=== PATIENT | female | born 1995 | race Two or more races ===

== ENCOUNTER 2019-09-22 17:41 | Emergency (ER) | payer SELFPAY ==
[~2019-09-22] VITALS: Ht 154.9 cm; Wt 61.2 kg
--- NOTE | 2019-09-22 17:59 | PHYS DOC ---
Past Medical History Attending Signature I have participated in the care of this patient and I have reviewed and agree with all pertinent clinical information above including history, exam, and recommendations. (ELIDA MUNOZ MD) Adult General Chief Complaint Chief Complaint: COUGH HPI HPI Patient is a 24 year old female who presents with shortness breath, cough this been ongoing for 4 days. Patient has a history of asthma. Patient rates her pain 7 out of 10 in severity and sharp. (JUSTIN BENDER APRN) Review of Systems Review of Systems Constitutional: Denies fever or chills [] Eyes: Denies change in visual acuity, redness, or eye pain [] HENT: Denies nasal congestion or sore throat [] Respiratory: Reports cough and shortness of breath [] Cardiovascular: No additional information not addressed in HPI [] GI: Denies abdominal pain, nausea, vomiting, bloody stools or diarrhea [] : Denies dysuria or hematuria [] Musculoskeletal: Denies back pain or joint pain [] Integument: Denies rash or skin lesions [] Neurologic: Denies headache, focal weakness or sensory changes [] Endocrine: Denies polyuria or polydipsia [] Complete systems were reviewed and found to be within normal limits, except as documented in this note. (JUSTIN BENDER APRN) Current Medications Current Medications Current Medications Medications (Trade) Dose Ordered Sig/Ju Start Time Stop Time Status Last Admin Dose Admin Albuterol/ Ipratropium (Duoneb) 3 ml 1X ONCE 09/22/19 18:00 09/22/19 18:02 DC 09/22/19 18:09 3 ML Methylprednisolone Sodium Succinate (SOLU-Medrol 125MG VIAL) 125 mg 1X ONCE 09/22/19 18:00 09/22/19 18:02 DC 09/22/19 18:21 125 MG (ELIDA MUNOZ MD) Allergies Allergies Allergies Coded Allergies Type Severity Reaction Last Updated Verified No Known Drug Allergies 09/22/19 No (ELIDA MUNOZ MD) Physical Exam Physical Exam Constitutional: Well developed, well nourished, no acute distress, non-toxic appearance. [] HENT: Normocephalic, atraumatic, bilateral external ears normal, bilateral tympanic membranes are pearly riggins, oropharynx moist, no oral exudates. Eyes: PERRLA, EOMI, conjunctiva normal, no discharge. [] Neck: Normal range of motion, no tenderness, supple, no stridor. [] Cardiovascular:Heart rate regular rhythm, no murmur [] Lungs & Thorax: Bilateral breath sounds have wheezing throughout all kelly. Abdomen: Bowel sounds normal, soft, no tenderness, no masses, no pulsatile masses. [] Skin: Warm, dry, no erythema, no rash. [] Neurologic: Alert and oriented X 3, normal motor function, normal sensory function, no focal deficits noted. [] Psychologic: Affect normal, judgement normal, mood normal. [] (JUSTIN BENDER APRN) Current Patient Data Vital Signs Vital Signs Date Time Temp Pulse Resp B/P (MAP) Pulse Ox O2 Delivery O2 Flow Rate FiO2 09/22/19 19:00 90 116/67 (83) 93 Room Air 09/22/19 18:45 18 09/22/19 17:48 100.2 100.2 (ELIDA MUNOZ MD) Lab Values Laboratory Tests Test 09/22/19 17:51 POC Urine HCG, Qualitative Hcg negative (Negative) (ELIDA MUNOZ MD) Lab Values Laboratory Tests Test 09/22/19 17:51 POC Urine HCG, Qualitative Hcg negative (Negative) (JUSTIN BENDER APRN) EKG EKG [] (JUSTIN BENDER APRN) Radiology/Procedures Radiology/Procedures [] (JUSTIN BENDER APRN) Course & Med Decision Making Course & Med Decision Making Pertinent Labs and Imaging studies reviewed. (See chart for details) Will give breathing treatment, steroids, and get chest x-ray. Patient is feeling better after treatment. Will d/c home with medrol dose pack. (JUSTIN BENDER APRN) Dragon Disclaimer Dragon Disclaimer This electronic medical record was generated, in whole or in part, using a voice recognition dictation system. (JUSTIN BENDER APRN) Departure Departure Impression: Primary Impression: Asthma exacerbation Disposition: HOME, SELF-CARE Condition: STABLE Patient Instructions: Asthma Attacks, Prevention, Asthma Prevention-Brief, Asthma, Adult Additional Instructions: Thank you for visiting [facility]. We appreciate you trusting us with your care. If any additional problems come up don't hesitate to return to visit us. Please follow up with your primary care provider so they can plan additional care if needed and know about the problem that you had. If symptoms worsen come back to the Emergency Department. Any concerning symptoms that start such as chest pain, shortness of air, weakness or numbness on one side of the body, running high fevers or any other concerning symptoms return to the ER. Please fill your medications at any pharmacy and follow the prescription instructions. Scripts Albuterol Sulfate (PROAIR HFA INHALER) 8.5 Gm Hfa.aer.ad 2 PUFF IH PRN Q4-6HRS PRN for wheezing for 21 Days, #1 INHALER 0 Refills Prov: JUTSIN BENDER APRN 09/22/19 Methylprednisolone (MEDROL) 4 Mg Tab.ds.pk 1 PKG PO UD, #1 PKG Prov: JUSTIN BENDER APRN 09/22/19 Problem Qualifiers Primary Impression: Asthma exacerbation Asthma severity: moderate Asthma persistence: unspecified Qualified Codes: J45.901 - Unspecified asthma with (acute) exacerbation JUSTIN BENDER APRN Sep 22, 2019 17:59 ELIDA MUNOZ MD Sep 24, 2019 02:49
[2019-09-22] MEDS ORDERED: methylPREDNISolone SOD SUCC PF 125 MG/2 ML VIAL. IM ONE (18:00)
[2019-09-22] MEDS ORDERED: IPRATRPIUM/ALBUTEROL 0.5/2.5MG 3 ML NEBU. NEB ONE (18:00)
[2019-09-22 19:00] VITALS: BP 116/67
[2019-09-22] MEDS ORDERED: ALBU2.5V8 IH (19:04)
[2019-09-22] MEDS ORDERED: METH4TAB2 PO (19:04)
--- NOTE | 2019-09-22 19:22 | RAD ---
CHEST PA LATERAL History: Cough and shortness of breath Comparison: None. Findings: The cardiomediastinal silhouette is normal. Pulmonary vasculature is normal. The lungs are clear. No pleural effusion or pneumothorax is seen. There is no acute bone abnormality. IMPRESSION: No acute cardiopulmonary process. Electronically signed by: Chase Bansal MD (09/22/2019 7:19 PM) [facility]
== END 2019-09-22 19:10 | disposition home or self-care (01) ==
LOC: ER 17:41
DX: J45.901 Unspecified asthma with (acute) exacerbation (principal); Z79.899 Other long term (current) drug therapy
CPT/HCPCS: 71046; 81025; 96372; 99284; J2930; J7620